=== PATIENT | female | born 1985 | race Caucasian/White ===

== ENCOUNTER 2018-11-26 07:21 | Emergency (ER) | payer OTHER ==
[2018-11-26 07:34] VITALS: BP 129/82
--- NOTE | 2018-11-26 08:17 | UC ---
[facility] HPI - HPI Summary HPI Summary: Lower R molar broke and painful over past week. has gotten worse over past 48h - History of Current Complaint Chief Complaint: UCDentalProblem Stated Complaint: DENTAL PAIN Time Seen by Provider: 11/26/18 08:02 Hx Obtained From: Patient Hx Last Menstrual Period: IUD in place ?: No Onset/Duration: Gradual Onset Severity: Moderate Pain Intensity: 8 Aggravating Factor(s): Heat, Cold, Chewing Alleviating Factor(s): Nothing - tried Tylenol - Allergies/Home Medications Allergies/Adverse Reactions: Allergies Allergy/AdvReac Type Severity Reaction Status Date / Time Environmental Allergies Allergy Congestion Uncoded 11/26/18 07:34 Home Medications: Home Medications Acetaminophen [8Hr Arthritis Pain] 1,200 mg PO ONCE PRN 11/26/18 [History Confirmed 11/26/18] PMH/Surg Hx/FS Hx/Imm Hx Previously Healthy: Yes - Surgical History Surgical History: Yes Surgery Procedure, Year, and Place: C section x2, Gallbladder 2003. T&A - Family History Known Family History: Positive: Hypertension - Social History Occupation: Works From/At Home Lives: With Family Alcohol Use: Rare Substance Use Type: None Smoking Status (MU): Former Smoker Have You Smoked in the Last Year: No - Immunization History Most Recent Influenza Vaccination: 05/2014 Most Recent Tetanus Shot: unknown Most Recent Pneumonia Vaccination: never Review of Systems All Other Systems Reviewed And Are Negative: Yes Constitutional: Negative: Fever, Chills Skin: Positive: Negative ENT: Positive: Dental Pain Respiratory: Positive: Negative Cardiovascular: Positive: Negative Neurological: Positive: Negative Psychological: Positive: Negative Is Patient Immunocompromised?: No Physical Exam Triage Information Reviewed: Yes Appearance: Obese Vital Signs: Initial Vital Signs Temp 98 F 11/26/18 07:28 Pulse 89 11/26/18 07:28 Resp 18 11/26/18 07:28 BP 129/82 11/26/18 07:28 Pulse Ox 97 11/26/18 07:28 Vital Signs Reviewed: Yes ENT: Positive: Dental tenderness - lower R molar, minimal swelling and erythema gum, no facial swelling palp Dental: Positive: Dental Fracture @. Negative: Cellulitis @, Cervical Lymphadenopathy Neck: Positive: No Lymphadenopathy Respiratory Exam: Normal Cardiovascular Exam: Normal Psychological Exam: Normal Skin Exam: Normal Dental Complaint Course/Dx - Differential Dx/Diagnosis Differential Diagnosis/Dx: Dental Abscess, Fractured Tooth, Gingivitis Provider Diagnosis: Dental abscess Discharge - Sign-Out/Discharge Documenting (check all that apply): Patient Departure All imaging exams completed and their final reports reviewed: No Studies - Discharge Plan Condition: Stable Disposition: HOME Prescriptions: Penicillin VK TAB* [Penicillin VK 250 mg Tab*] 250 mg PO QID #40 tab Patient Education Materials: Toothache (ED) Referrals: Sunshine Loredo MD [Primary Care Provider] - Additional Instructions: use ibuprofen 800mg every 6-8 hours as needed for pain. take with food Start antibiotic and take as directed see dentist as soon as possible - Billing Disposition and Condition Condition: STABLE Disposition: Home
== END 2018-11-26 08:25 | disposition home or self-care (01) ==
LOC: UCEAST 07:21
DX: K04.7 Periapical abscess without sinus (principal); Z87.891 Personal history of nicotine dependence
CPT/HCPCS: 99212; G0463

== ENCOUNTER 2019-05-13 07:24 | Emergency (ER) | payer BC, OTHER ==
[2019-05-13 07:40] VITALS: BP 155/85
--- NOTE | 2019-05-13 07:54 | UC ---
Throat Pain/Nasal Denis HPI - HPI Summary HPI Summary: 33-year-old woman comes in with chief complaint of sinusitis symptoms for 4-5 days with left neck pain. Patient has runny nose the rhinorrhea is green. Yesterday started with some left-sided ear and neck pain. Denies any difficulty or pain with swallowing. No difficulty with breathing. Neck pain is from the left ear down the left side of the neck laterally. It is tender to palpation with movement. Is no midline neck pain. Patient's had chills but no measured fevers. No complaint of chest congestion or shortness of breath. - History of Current Complaint Chief Complaint: UCRespiratory Stated Complaint: SINUS ISSUE Time Seen by Provider: 05/13/19 07:40 Hx Last Menstrual Period: IUD in place Pain Intensity: 6 - Allergies/Home Medications Allergies/Adverse Reactions: Allergies Allergy/AdvReac Type Severity Reaction Status Date / Time Environmental Allergies Allergy Congestion Uncoded 05/13/19 07:40 Home Medications: Home Medications Levonorgestrel (Iud) [Mirena IUD] 1 unit INTRAUTERI ONCE 05/13/19 [History Confirmed 05/13/19] Pseudoephedrine HCl [Sudafed] 1 tab PO ONCE PRN 05/13/19 [History Confirmed 07/20] PMH/Surg Hx/FS Hx/Imm Hx Previously Healthy: Yes - PCOS - Surgical History Surgical History: Yes Surgery Procedure, Year, and Place: C section x2, Gallbladder 2004. T&A - Family History Known Family History: Positive: Hypertension - Social History Alcohol Use: Rare Substance Use Type: None Smoking Status (MU): Former Smoker Have You Smoked in the Last Year: No - Immunization History Most Recent Influenza Vaccination: 05/2014 Most Recent Tetanus Shot: unknown Most Recent Pneumonia Vaccination: never Review of Systems All Other Systems Reviewed And Are Negative: Yes Constitutional: Positive: Other - SEE HPI Skin: Positive: Negative Eyes: Positive: Negative ENT: Positive: Ear Ache, Nasal Discharge, Sinus Congestion, Other - SEE HPI Respiratory: Positive: Negative Cardiovascular: Positive: Negative Gastrointestinal: Positive: Negative Motor: Positive: Negative Neurovascular: Positive: Negative Musculoskeletal: Positive: Other: - SEE HPI Neurological: Positive: Negative Psychological: Positive: Negative Is Patient Immunocompromised?: No Physical Exam Triage Information Reviewed: Yes Appearance: No Pain Distress, Well-Nourished, Ill-Appearing - MILD Vital Signs: Initial Vital Signs Temp 99 F 05/13/19 07:31 Pulse 91 05/13/19 07:31 Resp 18 05/13/19 07:31 BP 155/85 05/13/19 07:31 Pulse Ox 97 05/13/19 07:31 Vital Signs Reviewed: Yes Eye Exam: Normal Eyes: Positive: Conjunctiva Clear ENT: Positive: Pharyngeal erythema, Nasal congestion, Nasal drainage, TM dull - Left TM is dull and comparison to the right TM. I do not see any pus behind the TM it is not erythematous. Left-sided neck is mildly tender to palpation from the left eardrum the left lateral side. No erythema on the neck. Neck has full range of motion., Uvula midline, Other - Oral pharynx is open and symmetric.. Negative: Tonsillar swelling, Muffled voice, Hoarse voice Neck: Positive: Supple Respiratory: Positive: Lungs clear, Normal breath sounds, No respiratory distress Cardiovascular: Positive: RRR Musculoskeletal: Positive: Strength Intact, ROM Intact Neurological: Positive: Alert, Muscle Tone Normal Psychological: Positive: Age Appropriate Behavior Skin Exam: Normal Throat Pain/Nasal Course/Dx - Course Course Of Treatment: On examination of the neck and did not appreciate any masses. Patient is not having any problems swallowing or breathing. I did discuss with her the possibility of an infection tracking down into the neck and neck abscesses and let her know that if she was not improving she needs to get reevaluated. DISCUSSED VIRAL VERSES BACTERIAL INFECTIONS AND THE ROLE OF ANTIBIOTICS. THE PATIENT PREFERS TO BE ON ANTIBIOTICS AT THIS TIME. - Differential Dx/Diagnosis Provider Diagnosis: Sinusitis, Neck pain on left side Discharge ED - Sign-Out/Discharge Documenting (check all that apply): Patient Departure All imaging exams completed and their final reports reviewed: No Studies - Discharge Plan Condition: Stable Disposition: HOME Prescriptions: Amoxicillin/Clavulanate TAB* [Augmentin TAB 875*] 875 mg PO BID #20 tab Patient Education Materials: Sinusitis (ED), Acute Neck Pain (ED) Referrals: Sunshine Loredo MD [Primary Care Provider] - Additional Instructions: FOLLOW UP WITH YOUR DOCTOR IF NOT COMPLETELY IMPROVED. GO TO THE EMERGENCY DEPARTMENT IF YOUR CONDITION WORSENS; PERSISTENT OR WORSE NECK PAIN, DIFFICULTY SWALLOWING OR BREATHING, YOU FEEL ILL OR ANY QUESTIONS OR CONCERNS. - Billing Disposition and Condition Condition: STABLE Disposition: Home
== END 2019-05-13 08:03 | disposition home or self-care (01) ==
LOC: UCEAST 07:24
DX: J32.9 Chronic sinusitis, unspecified (principal); M54.2 Cervicalgia; Z91.09 Other allergy status, other than to drugs and biological substances; Z87.891 Personal history of nicotine dependence
CPT/HCPCS: 99212; G0463

== ENCOUNTER 2019-07-30 07:13 | Emergency (ER) | payer BC ==
[2019-07-30 07:29] VITALS: BP 175/98
--- NOTE | 2019-07-30 07:42 | UC ---
Throat Pain/Nasal Denis HPI - HPI Summary HPI Summary: 33-year-old woman comes in with a chief complaint of 3 days of sore throat and feeling ill. Hurts when she swallows. She took ibuprofen and that did help with the pain. She has CPAP at night and overnight with the CPAP on her throat her got worse. No ear pain. Her daughter is sick at home and is on antibiotics. - History of Current Complaint Chief Complaint: UCGeneralIllness Stated Complaint: SORE THROAT Time Seen by Provider: 07/30/19 07:35 Hx Last Menstrual Period: no periods Pain Intensity: 8 - Allergies/Home Medications Allergies/Adverse Reactions: Allergies Allergy/AdvReac Type Severity Reaction Status Date / Time Environmental Allergies Allergy Congestion Uncoded 07/30/19 07:24 PMH/Surg Hx/FS Hx/Imm Hx Previously Healthy: Yes - sleep apnea,obesity - Surgical History Surgical History: Yes Surgery Procedure, Year, and Place: C section x2, Gallbladder 2004. T&A - Family History Known Family History: Positive: Hypertension - Social History Alcohol Use: Rare Substance Use Type: None Smoking Status (MU): Never Smoked Tobacco Have You Smoked in the Last Year: No - Immunization History Most Recent Influenza Vaccination: 05/2014 Most Recent Tetanus Shot: unknown Most Recent Pneumonia Vaccination: never Review of Systems All Other Systems Reviewed And Are Negative: Yes Constitutional: Positive: Other - see hpi Skin: Positive: Negative Eyes: Positive: Negative ENT: Positive: Sore Throat Respiratory: Positive: Negative Cardiovascular: Positive: Negative Gastrointestinal: Positive: Negative Motor: Positive: Negative Neurovascular: Positive: Negative Musculoskeletal: Positive: Negative Neurological: Positive: Negative Psychological: Positive: Negative Is Patient Immunocompromised?: No Physical Exam Triage Information Reviewed: Yes Appearance: No Pain Distress, Well-Nourished, Ill-Appearing - mild Vital Signs: Initial Vital Signs Temp 98.1 F 07/30/19 07:24 Pulse 104 07/30/19 07:24 Resp 18 07/30/19 07:24 BP 175/98 07/30/19 07:24 Pulse Ox 95 07/30/19 07:24 Vital Signs Reviewed: Yes Eye Exam: Normal Eyes: Positive: Conjunctiva Clear ENT: Positive: Pharyngeal erythema, TMs normal, Uvula midline - Oropharynx open. No evidence of peritonsillar abscess at this time.. Negative: Muffled voice, Hoarse voice Neck: Positive: Supple Respiratory: Positive: Lungs clear, Normal breath sounds, No respiratory distress Cardiovascular: Positive: RRR Musculoskeletal: Positive: Strength Intact, ROM Intact Neurological: Positive: Alert, Muscle Tone Normal Psychological: Positive: Age Appropriate Behavior Skin Exam: Normal Throat Pain/Nasal Course/Dx - Differential Dx/Diagnosis Provider Diagnosis: Strep pharyngitis Discharge ED - Sign-Out/Discharge Documenting (check all that apply): Patient Departure All imaging exams completed and their final reports reviewed: No Studies - Discharge Plan Condition: Stable Disposition: HOME Prescriptions: Amoxicillin PO (*) [Amoxicillin 875 MG (*)] 875 mg PO BID #20 tab Patient Education Materials: Strep Throat (ED) Referrals: Sunshine Loredo MD [Primary Care Provider] - Additional Instructions: FOLLOW UP WITH YOUR DOCTOR IF NOT COMPLETELY IMPROVED. GET REEVALUATED SOONER IF NOT IMPROVED OR WORSE OR ANY QUESTIONS OR CONCERNS. - Billing Disposition and Condition Condition: STABLE Disposition: Home
== END 2019-07-30 07:49 | disposition home or self-care (01) ==
LOC: UCEAST 07:13
DX: J02.0 Streptococcal pharyngitis (principal); Z91.09 Other allergy status, other than to drugs and biological substances
CPT/HCPCS: 87651; 99202; G0463

== ENCOUNTER 2023-10-20 05:59 | Inpatient (IN) ==
[2023-10-20] MEDS ORDERED: Heparin 5000 UNITS/ML 1 mL VIAL ONE (06:18)
[2023-10-20] MEDS ORDERED: ceFAZolin *3* GM in NS PREMIX 3 GM/100 ML BAG IV ONE (06:18)
[2023-10-20] MEDS ORDERED: Famotidine IV 10 MG/ML 2 ml VIAL (20 mg) ONE (06:18)
[2023-10-20] MEDS ORDERED: Scopolamine 1 mg/72hr PATCH ONE (06:18)
[2023-10-20] MEDS: Famotidine IV 10 MG/ML 2 ml VIAL (20 mg) IV ONE (06:34)
[2023-10-20] MEDS ORDERED: Methylene Blue 1% (ANTIDOTE) 10 MG/ML 1 ML SDV VIAL IVPB ONE (07:01)
[2023-10-20] MEDS ORDERED: Lidocaine 1% w EPI 1:200,000 SDV 30 ML VIAL ONE (07:01)
[2023-10-20] MEDS ORDERED: Bupivacaine 0.25% SDV 30 ML ONE (07:01)
[2023-10-20] MEDS ORDERED: Propofol 10 MG/ML 20 ML BTL ONE (07:16)
[2023-10-20] MEDS ORDERED: Midazolam 2 mg/2 ml VIAL 1 mg/ml 2 ml VIAL (2 mg) ONE (07:18)
[2023-10-20] MEDS ORDERED: HYDROmorphone 0.5 MG/0.5 ML SYRINGE ONE ×4 (07:18→10:29)
[2023-10-20] MEDS ORDERED: Rocuronium 50 mg VIAL 10 mg/ml 5 ml VIAL (50 mg) ONE ×3 (07:19→09:29)
[2023-10-20] MEDS ORDERED: Dexmedetomidine 200 mcg/2 ml 2 ml VIAL (200 mcg) ONE (07:20)
[2023-10-20] MEDS ORDERED: Succinylcholine 200 mg VIAL 20 mg/ml 10 ml VIAL (200 mg) ONE (07:20)
[2023-10-20] MEDS ORDERED: Ondansetron 4 mg VIAL 2 MG/ML 2 ml VIAL ONE ×2 (07:25→11:36)
[2023-10-20] MEDS ORDERED: Naloxone 0.4 mg VIAL 0.4 mg/ml 1 ml VIAL IV PRN (08:28)
[2023-10-20] MEDS ORDERED: Bacitracin OINTMENT TUBE ONE (08:47)
[2023-10-20] MEDS ORDERED: Acetaminophen IV 1 GM/100ML 1,000 MG/100 ML BAG IV ONE (11:09)
[2023-10-20] MEDS ORDERED: fentaNYL 100 mcg/2 ml 50 MCG/ML VIAL ONE ×4 (11:14→13:15)
[2023-10-20] MEDS: Ondansetron 4 mg VIAL 2 MG/ML 2 ml VIAL IV PRN ×2 (11:49→17:58)
[2023-10-20] MEDS: fentaNYL 100 mcg/2 ml 50 MCG/ML VIAL IV PRN ×2 (11:55→12:46)
[2023-10-20] MEDS: Heparin 5000 UNITS/ML 1 mL VIAL SUBCUT SCH (14:21)
[2023-10-20] MEDS: HYDROmorphone 1 MG/1 ML SYRINGE IV SLOW PU PRN (14:21)
[2023-10-20] MEDS: Lactated Ringers 1000 ml BAG 1,000 ML IV SCH (14:22)
[2023-10-20] MEDS: Metoclopramide 5 MG/ML VIAL (10 mg) IV PRN (16:04)
[2023-10-20] MEDS: Acetaminophen IV 1 GM/100ML 1,000 MG/100 ML BAG IV SCH (17:58)
[2023-10-20] MEDS: HYDROmorphone 0.5 MG/0.5 ML SYRINGE IV SLOW PU PRN (18:45)
[2023-10-20] MEDS: Famotidine IV 10 MG/ML 2 ml VIAL (20 mg) IV SLOW PU SCH (21:04)
[2023-10-20] MEDS: Nystatin TOP POWDER 15 GM BTL TOPICAL SCH (22:39)
[2023-10-21] MEDS ORDERED: HYDROcodone/ACET. 7.5/325 LIQ 15 ML UDC PO PRN (09:09)
[2023-10-21] MEDS: Buffered Lidocaine 1% SYRIN 1 ml INTRADERM ONE (11:59)
[2023-10-21] MEDS: Lactated Ringers 1000 ml BAG 1,000 ML IV SCH (11:59)
[2023-10-21 14:30] VITALS: BP 139/89
[2023-10-21] MEDS: D5W 1/2 NS KCl 20 meq 1000 ml 1,000 ML IV SCH (15:09)
== END 2023-10-21 15:50 | disposition home or self-care (01) | DRG 403 ==
LOC: AA 05:59 → SSU 11:59
PROVIDERS: ADMIT Surgery; ATTEND Surgery